=== PATIENT | female | born 1960 | race Two or more races ===

== ENCOUNTER → 2025-01-26 | Emergency (ER) | payer OTHER ==
[~2025-01-26] VITALS: Ht 154.9 cm; Wt 61.2 kg
[~2025-01-26] MED LIST: ACETAMINOPHEN 500 MG GEL..CAP PO ONE; CETIRIZINE HCL 10 MG TABLET PO ONE; CETIRIZINE HCL 5MG/5ML BLIST.PACK PO ONE; HYDROCODONE/CHLORPHEN P-STIREX 5 ML ML PO ONE; METHYLPREDNISOLONE SOD SUCC 125 MG VIAL IV ONE; METHYLPREDNISOLONE SOD SUCC 125 MG VIAL ONE; MUCINEX DM ER1 EAC1 PO; OSEL75CA PO
[2025-01-26 21:23] LABS: BASO % 0.2 % (0.1-1.2); EOS # 0.00 (0.04-0.54); EOS % 0.0 % (0.7-7.0); LYMPH # 1.86 (1.18-3.74); LYMPH % 32.2 % (19.3-53.1); MEAN PLATELET VOLUME 9.50 fl (9.4-12.4); MONO # 0.67 (0.24-0.82); MONO % 11.6 % (4.7-12.5); NEUT # 3.23 (1.56-6.13); NEUT % 55.8 % (34.0-71.1); RED CELL DISTRIBUTION WIDTH 13.2 % (11.6-14.4)
[2025-01-26 21:52] LABS: COVID-19 AG NEGATIVE (NEGATIVE)
== END | disposition home or self-care (01) ==
LOC: ER 16:15
PROVIDERS: General Practice
DX: J10.1 Influenza due to other identified influenza virus with other respiratory manifestations (principal); Z20.822 Contact with and (suspected) exposure to COVID-19